=== PATIENT | male | born 1975 | race African-American/Black ===

== ENCOUNTER 2018-01-01 01:37 | Emergency (ER) | payer MEDICAID ==
[~2018-01-01] VITALS: Ht 172.7 cm; Wt 98.0 kg
[2018-01-01] MEDS ORDERED: TETANUS, DIPHTHERIA, PERTUSSIS VAC/PF 0.5ML (>7YR OLD) IM ONE (02:15)
[2018-01-01] MEDS ORDERED: MORPHINE SULFATE 10 MG/ML CPJ IV ONE (02:15)
[2018-01-01] MEDS ORDERED: SODIUM CHLORIDE 0.9% 1,000 ML IV ONE (02:15)
[2018-01-01] MEDS ORDERED: CEFAZOLIN 1000MG PREMIX 50 ML IV ONE (02:15)
[2018-01-01 02:21] VITALS: BP 195/123
[2018-01-01] MEDS ORDERED: SILVER SULFADIAZINE 1% CREAM 50GM TOP SCH (02:30)
== END 2018-01-01 03:31 | disposition home or self-care (01) ==
LOC: ER 01:37
DX: T21.23XA Burn of second degree of upper back, initial encounter (principal); T22.252A Burn of second degree of left shoulder, initial encounter; I10 Essential (primary) hypertension; F12.10 Cannabis abuse, uncomplicated; T31.0 Burns involving less than 10% of body surface; X12.XXXA Contact with other hot fluids, initial encounter; Y93.89 Activity, other specified; Y92.010 Kitchen of single-family (private) house as the place of occurrence of the external cause
CPT/HCPCS: 16020; 90471; 90715; 96365; 96375; 99284; J0690; J2270; J7030